=== PATIENT | male | born 1995 | race Caucasian/White ===

== ENCOUNTER 2017-12-07 05:21 | Emergency (ER) | payer OTHER ==
[~2017-12-07] VITALS: Ht 172.7 cm; Wt 55.6 kg
[2017-12-07 05:25] VITALS: BP 122/68
[2017-12-07] MEDS ORDERED: ALPR0.252 PO (05:31)
--- NOTE | 2017-12-07 05:33 | NUR ---
PATIENT PRESENTS TO ED WITH ABCESS TO RIGHT PROXIMAL GLUTEAL FOLD. AREA IS RED WITH EDEMA. NO OPEN AREAS OR HEAD PRESENT. PT STATES PAIN WHILE SITTING AND C/O SEVERE PAIN 10/10. DENIES N/V/D; SKIN IS PINK/WARM/DRY; AAOX4 WITH EVEN, STEADY, AND SLOW GAIT D/T PAIN; LUNGS CLEAR BL; HR EVEN AND REGULAR; PT DENIES ANY FEVER, CP, SOB, OR COUGH AT THIS TIME; PATIENT STATES PAIN OF 10/10 AT THIS TIME; VSS; PATIENT POSITIONED FOR COMFORT; HOB ELEVATED; BEDRAILS UP X2; BED DOWN. ER MD MADE AWARE OF PT STATUS. CONTINUE TO MONITOR.
--- NOTE | 2017-12-07 05:33 | NUR ---
PT TAKEN TO BED 8
--- NOTE | 2017-12-07 05:51 | NUR ---
Dr. Woods evaluating patient at bedside.
[2017-12-07] MEDS ORDERED: CLINDAMYCIN 900 MG in DEXTROSE 5% 100 ML IV ONE (06:05)
[2017-12-07] MEDS ORDERED: KETOROLAC 30 MG/ML VIAL IVP ONE (06:05)
[2017-12-07] MEDS ORDERED: CLINDAMYCIN 900 MG/6 ML VIAL IV ONE (06:12)
--- NOTE | 2017-12-07 07:10 | NUR ---
RECHECK PT CAUSE PT NEEDS SECOND OPINION.
--- NOTE | 2017-12-07 07:48 | NUR ---
Patient discharged with v/s stable. Written and verbal after care instructions given and explained. Patient alert, oriented and verbalized understanding of instructions. Ambulatory with steady gait. All questions addressed prior to discharge. ID band removed. Patient advised to follow up with PMD. Rx of TRAMADOL, BACTRIM AND KEFLEX given. Patient educated on indication of medication including possible reaction and side effects. Opportunity to ask questions provided and answered.
[2017-12-07 07:50] VITALS: BP 125/70
== END 2017-12-07 07:48 | disposition home or self-care (01) ==
LOC: MED 05:21
DX: L03.317 Cellulitis of buttock (principal); L02.31 Cutaneous abscess of buttock; F17.210 Nicotine dependence, cigarettes, uncomplicated; Z79.899 Other long term (current) drug therapy
CPT/HCPCS: 96365; 96375; 99284; J1885; J3490